=== PATIENT | female | born 1965 | race Caucasian/White ===

== ENCOUNTER 2019-02-19 22:19 | Emergency (ER) | payer SELFPAY ==
[2019-02-19 22:30] VITALS: BP 116/72; PULSE 75; TEMP 98.1; BMI 20.9
[2019-02-20] MEDS ORDERED: CEPHALEXIN MONOHYDRATE 500 MG CAPSULE (UD) PO ONE (00:59)
[2019-02-20] MEDS ORDERED: TETANUS AND DIPHTHERIA TOXOID 0.5 ML DISP.SYRIN IM ONE (00:59)
[2019-02-20] MEDS ORDERED: AMOX TR/POT CLAV 875MG/125MG TABLETS (FP) PO ONE (01:02)
--- NOTE | 2019-02-20 01:02 | PDOC ---
History of Present Illness - General Chief Complaint: Bite Stated Complaint: GOT BITTEN BY DOG History Source: Patient Exam Limitations: No Limitations - History of Present Illness Initial Comments: 02/20/19 00:56 Patient is a 53 year old female with no pmhx c/o dog bite to the left hand since noon today and sustained lacerations. States was bitten a neighbour's dog , while petting the dog. Dog has never been aggressive in the past. Dog is UTD with vaccines. Patient does not want this bite reported and will not give the name studio owner or address. Patient's tetanus is not UTD PMHX: neg PSOCHX: neg etoh, drug, cig ALL: NKDA GENERAL/CONSTITUTIONAL: No fever or chills. No weakness. No weight change. HEAD, EYES, EARS, NOSE AND THROAT: No change in vision. No ear pain or discharge. No sore throat. SKIN AND BREASTS: No rash or easy bruising. NEUROLOGIC: No headache, vertigo, loss of consciousness, or loss of sensation. PSYCHIATRIC: No depression or anxiety. ENDOCRINE: No increased thirst. No abnormal weight change. HEMATOLOGIC/LYMPHATIC: No anemia, easy bleeding, or history of blood clots. ALLERGIC/IMMUNOLOGIC: No hives or skin allergy. No latex allergy. GENERAL: The patient is awake, alert, and fully oriented, in no acute distress. HEAD: Normal with no signs of trauma. EYES: Pupils equal, round and reactive to light, extraocular movements intact, sclera anicteric, conjunctiva clear. EXTREMITIES: Normal range of motion, no edema. No clubbing or cyanosis. No cords, erythema, or tenderness. NEUROLOGICAL: Cranial nerves II through XII grossly intact. Normal speech, normal gait. PSYCH: Normal mood, normal affect. SKIN: (+) open 1.5 cm lacerations, skin flap and superficial liner x 2. Warm, Dry, normal turgor, no rashes or lesions noted. Past History - Past Medical History Allergies/Adverse Reactions: Allergies Allergy/AdvReac Type Severity Reaction Status Date / Time No Known Allergies Allergy Verified 02/19/19 22:30 Home Medications: Ambulatory Orders Amoxicillin/Potassium Clav [Augmentin 875-125 Tablet] 1 each PO BID #14 tablet 02/20/19 COPD: No - Suicide/Smoking/Psychosocial Hx Smoking History: Never smoked Have you smoked in the past 12 months: No Information on smoking cessation initiated: No Hx Alcohol Use: No Drug/Substance Use Hx: No *Physical Exam - Vital Signs Last Vital Signs Temp Pulse Resp BP Pulse Ox 98.1 F 75 16 116/72 100 02/19/19 22:27 02/19/19 22:27 02/19/19 22:27 02/19/19 22:27 02/19/19 22:27 Moderate Sedation - Procedure Monitoring Vital Signs: Procedure Monitoring Vital Signs Temperature 98.1 F 02/19/19 22:27 Pulse Rate 75 02/19/19 22:27 Respiratory Rate 16 02/19/19 22:27 Blood Pressure 116/72 02/19/19 22:27 O2 Sat by Pulse Oximetry (%) 100 02/19/19 22:27 Medical Decision Making - Medical Decision Making 02/20/19 00:56 Patient is a 53 year old female with no pmhx c/o dog bite to the left hand since noon today. States was bitten a neighbour dog, while petting the dog. Dog has never been aggressive in the past. Dog is UTD with vaccines. Patient does not want this bite reported and will not give the name studio owner. Patient's tetanus is not UTD. Wound left open for primary closure. Tetanus vaccine Augmentin 875 Wound check. I discussed the physical exam findings, ancillary test results and final diagnoses with the patient. I answered all of the patient's questions. The patient was satisfied with the care received and felt comfortable with the discharge plan and treatment plan. The Patient agrees to follow up with the within 72 hours for wound check. *DC/Admit/Observation/Transfer Diagnosis at time of Disposition: Dog bite Qualifiers: Encounter type: initial encounter Qualified Code(s): W54.0XXA - Bitten by dog, initial encounter - Discharge Dispostion Disposition: HOME Condition at time of disposition: Stable - Prescriptions Prescriptions: Amoxicillin/Potassium Clav [Augmentin 875-125 Tablet] 1 each PO BID #14 tablet - Referrals - Patient Instructions Printed Discharge Instructions: DI for Animal Bites Additional Instructions: Your Discharge Instructions: You must call primary care physician within 24 hours to arrange follow-up. Return to the Emergency Department with any new, persistent or worsening symptoms, for fever, chills, SOB, dizziness or any other concerning changes that may occur. For redness, purulent discharge, pain, and streaking return immediately. Wound check in 72 hours in the ED. - Post Discharge Activity
[2019-02-20] MEDS ORDERED: BACITRACIN 15 GM TUBE TOPICAL OINTMENT TP ONE (01:07)
[2019-02-20] MEDS ORDERED: BACITRACIN 0.9 GM PACKET ONE (01:10)
[2019-02-20] MEDS ORDERED: DIPHTH,PERTUSS(ACELL),TET 0.5 ML DISP.SYRIN IM ONE (01:19)
[2019-02-20] MEDS ORDERED: AMOX TR/POT CLAV 875MG/125MG TABLETS (FP) ONE (01:19)
== END 2019-02-20 01:27 | disposition home or self-care (01) ==
LOC: JER 22:19
PROC: 3E0234Z Introduction of Serum, Toxoid and Vaccine into Muscle, Percutaneous Approach (ICD-10-PCS; principal; 2019-02-19)
DX: S61.452A Open bite of left hand, initial encounter (principal); W54.0XXA Bitten by dog, initial encounter; Y93.K9 Activity, other involving animal care; Y92.89 Other specified places as the place of occurrence of the external cause; Y99.8 Other external cause status
CPT/HCPCS: 99281-25

== ENCOUNTER 2023-03-13 08:57 | Emergency (ER) | payer BC ==
[2023-03-13 09:06] VITALS: RESP 18; TEMP 98.6; BMI 23.1
[2023-03-13] MEDS ORDERED: ACETAMINOPHEN 500 MG TABLET (FP) PO ONE (09:58)
[2023-03-13] MEDS ORDERED: METHOCARBAMOL 500 MG TABLET PO ONE (09:58)
[2023-03-13] MEDS ORDERED: METHOCARBAMOL 500 MG TABLET ONE (10:04)
[2023-03-13] MEDS ORDERED: ACETAMINOPHEN 325 MG TABLET (FP) ONE (10:05)
[2023-03-13 10:39] LABS: BASO % 0.5 % (0-2.0); EOS % 0.3 % (0-4.5); HEMATOCRIT 38.3 % (32.4-45.2); HEMOGLOBIN 13.3 GM/dL (10.7-15.3); LYMPH % 21.3 % (8-40); MCH 30.5 pg (25.7-33.7); MCHC 34.8 g/dl (32.0-36.0); MEAN CELL VOLUME 87.6 fl (80-96); MEAN PLT VOLUME 8.3 fl (7.5-11.1); NEUT % 72.9 % (42.8-82.8); PLATELET COUNT 208 10^3/uL (134-434); RBC 4.37 M/mm3 (3.60-5.2); RDW 12.8 % (11.6-15.6); WHITE BLOOD COUNT 8.5 K/mm3 (4.0-10.0)
[2023-03-13 11:09] LABS: BLOOD UREA NITROGEN 18.5 mg/dL (7-18); CALCIUM 8.9 mg/dL (8.5-10.1)
[2023-03-13 11:10] LABS: ALBUMIN 3.8 g/dl (3.4-5.0)
[2023-03-13 11:13] LABS: CREATININE 0.7 mg/dL (0.55-1.3)
[2023-03-13 11:14] LABS: BILIRUBIN,TOTAL 0.4 mg/dL (0.2-1)
[2023-03-13] MEDS ORDERED: IBUPROFEN 600 MG TABLET (FP) PO ONE ×2 (13:04→13:16)
[2023-03-13 13:35] VITALS: BP 121/85; PULSE 83
== END 2023-03-13 14:00 | disposition home or self-care (01) ==
LOC: JER 08:57
DX: S09.90XA Unspecified injury of head, initial encounter (principal); S00.93XA Contusion of unspecified part of head, initial encounter; S40.211A Abrasion of right shoulder, initial encounter; S80.02XA Contusion of left knee, initial encounter; R55 Syncope and collapse; M62.830 Muscle spasm of back; R51.9 Headache, unspecified; M25.511 Pain in right shoulder; M25.561 Pain in right knee; M54.2 Cervicalgia; R11.0 Nausea; R42 Dizziness and giddiness; W19.XXXA Unspecified fall, initial encounter; Y92.093 Driveway of other non-institutional residence as the place of occurrence of the external cause
CPT/HCPCS: 36415; 70450-TC; 70486-TC; 71045-TC-FY; 72125-TC; 80053; 82550; 84484; 85025; 93005; 93010; 99285-25